=== PATIENT | male | born 1985 | race Caucasian/White ===

== ENCOUNTER 2020-03-26 00:41 | Outpatient (CLI) | payer BC, SELFPAY ==
[2020-03-26 18:07] LABS: SARS-CoV-2 RNA PCR Negative
== END 2020-03-26 00:42 | disposition home or self-care (01) ==
LOC: ANHCOVIDDT 00:42
PROVIDERS: PCP Family Medicine; Visit Provider Orthopaedic Surgery
DX: Z01.812 Encounter for preprocedural laboratory examination (principal); Z11.59 Encounter for screening for other viral diseases
CPT/HCPCS: 87635; C9803; U0003

== ENCOUNTER 2020-03-28 01:25 | Day surgery (SDC) | payer BC, SELFPAY ==
[2020-03-17 14:26] VITALS: BMI 51.0
[2020-03-28] VITALS (9 sets, daily range): BP systolic 117–149; BP diastolic 57–86; PULSE 73–96; RESP 10–18; TEMP 36.2–36.4; O2SAT 73–100
[2020-03-28] MEDS: LACTATED RINGERS 1,000 ML 30 ML IV CONT (06:30)
--- NOTE | 2020-03-28 06:56 | WPDANESEPPF ---
Anes - Initial Pre Proc Eval Procedure: Operation Date: 03/28/20 07:30 Proposed Procedures p Right Knee Arthroscopic Removal of Loose Bodies - Kg Bishop MD Date/Time: 03/28/20 06:56 Surgeon: Kg Bishop MD Pre Op Diagnosis: Right Knee Loose Bodies Patient Data Age: 34 Gender: M Height: 5 ft 10.5 in Weight: 163.5 kg Allergies Allergy/AdvReac Type Severity Reaction Status Date / Time No Known Allergies Allergy Verified 03/26/20 08:12 Home Medications Medication Instructions Recorded Confirmed Type gabapentin 300 mg capsule 300 mg PO TID 10/29/19 03/17/20 History omeprazole 20 mg capsule,delayed 20 mg PO DAILY #90 cap 02/20/20 03/17/20 Rx release tramadol 50 mg tablet 50 mg PO Q6H PRN #180 tablet 03/20/20 Rx Patient hx anesthesia problems: none Family hx anesthesia problems: none PMFSH Past Medical History Medical History Chondromalacia patellae of right knee GERD (gastroesophageal reflux disease) Loose body in knee, right knee Neuropathic pain, leg, bilateral Numbness and tingling of both feet Precious-Stieda syndrome of right knee Surgical History Surgical History History of gastric bypass (~2007) History of hand surgery (~2000) History of knee surgery (~2001) Family History Family History Other Family history of arthritis Social History Social History Smoking status: Never smoker Alcohol intake: never Substance use: never Substance use type: does not use Living arrangements: with family Gender identity (if verbalized by the patient): Male Spiritual care concerns: No Anes - Eval Final PreProcedure Day of Procedure 03/28/20 06:56 Patient weight: morbidly obese Heart: regular rate and rhythm Lungs: clear to auscultation Airway: Mallampati scale class II Neurological: alert and oriented Last oral intake: >/= 8 hours ASA classification: III Emergent: no Anesthetic plan: proceed Anesthesia type and monitoring: general LMA and standard monitoring Informed Consent: The patient's anesthetic plan and its attendant risks and benefits were discussed with the patient/family/POA. Questions were solicited and answers provided to the satisfaction of the patient/family/POA.
--- NOTE | 2020-03-28 07:06 | WPDHPUPDATE1 ---
History and Physical Update Update Date/Time: 03/28/20 07:06 History and Physical has been reviewed, including an updated exam of the patient. There are NO changes in the patient's condition. Risks, benefits, and alternatives have been discussed and questions answered. Patient agrees to proceed with procedure.
[2020-03-28] MEDS: ceFAZolin 3 GM/D5W 100 ML 100 ML IVPB (07:18)
[2020-03-28] MEDS: BUPIVACAINE/EPINEPHRINE 0.5% 30 ML VIAL INFILTRATE (07:42)
[2020-03-28] MEDS: KETOROLAC 30 MG/ML VIAL (*BKC) IV PUSH (07:57)
--- NOTE | 2020-03-28 08:43 | P.OP_ITS ---
Procedure Note - Detailed Date of procedure: 03/28/20 Pre-op diagnosis: Right Knee Loose Bodies Post-op diagnosis: other (1. Osteochondral defect right lateral femoral chondyle 2. Multiple small loose bodies. 3. Patellofemoral chondromalacia.) Procedure performed: Arthroscopic microfracture of anterior lateral chondyle osteochondral defect. Arthroscopic removal of multiple loose bodies. Description of procedure: 6mm defect at the lateral trochlea/femoral chondyle area. Patellofemoral chondromalacia. No meniscus injury. Weight bearing compartments intact. Anesthesia: GETA Surgeon: Kg Bishop MD Estimated blood loss (mL): 5 Complications: None Condition: stable Disposition: PACU Findings: Procedure Details: The patient was identified and the surgical site confirmed and signed in the preoperative holding area. Antibiotics were started per protocol. She was brought to the operative room and transferred to the OR table. A general anesthetic was administered. Supine position with the operative lower extremity position in the leg friedman after placement of a well padded tourniquet. The leg support was lowered and the contralateral limb was supported with a soft bolster. The knee was prepped and draped in the usual sterile fashion. A time-out was performed. The portal sites were marked and infiltrated with 0.5% Marcaine 20 mL. The limb was exsanguinated and the tourniquet inflated to 300 mL Hg. Standard inferolateral and inferomedial portals were established. Inflow was obtained with the saline pump. The camera was introduced. Diagnostic inspection of the joint was accomplished. Multiple small loose bodies were suctioned out through the shaver. Perhaps 2-3 or 4 were observed. The weight- bearing medial and lateral compartments were quite healthy. The menisci showed no pathology. Fat pad was excised for visualization and there was a stripe of tissue at the inferior pole the patella may have been impinging on the defect noted in the lateral most aspect of the trochlea along the lateral femoral condyle. This was debrided and a small osteochondral defect was identified. A microfracture awl perforation was placed into the subchondral bone. The defect was just about 5 mm in diameter. Significant portions of the trochlea and patella showed grade 2/Iii chondromalacia. There were early osteophytes forming in the notch and along the lateral condyles. The suprapatellar pouch showed m ild to moderate synovitis but no other loose bodies observed at the conclusion of the procedure. The arthroscopic instruments were removed. The tourniquet released and wounds closed with subcutaneous 3-0 Monocryl absorbable suture. Steri strips and a sterile dressing were applied. A light elastic wrap was placed. The patient was extubated and brought to the recovery room in stable condition.
== END 2020-03-28 10:30 | disposition home or self-care (01) ==
PROVIDERS: PCP Family Medicine; Visit Provider Orthopaedic Surgery
PROC: (CPT 29870; principal; 2020-03-28 07:30)
DX: M23.41 Loose body in knee, right knee (principal); M22.41 Chondromalacia patellae, right knee; M76.41 Tibial collateral bursitis [Pellegrini-Stieda], right leg; G62.9 Polyneuropathy, unspecified; K21.9 Gastro-esophageal reflux disease without esophagitis; Z98.84 Bariatric surgery status; E66.01 Morbid (severe) obesity due to excess calories; Z68.43 Body mass index [BMI] 50.0-59.9, adult
CPT/HCPCS: 29879; 87635; A9270; C9803; J0131; J0690; J1100; J1170; J1885; J2250; J2405; J2704; J3010; J7120; U0003

== ENCOUNTER 2020-07-08 12:56 | Outpatient (CLI) | payer BC, SELFPAY ==
--- NOTE | 2020-07-23 14:31 | WPDHOMESLEEP ---
Sleep Study - Home Unattended Date of Study: 07/08/20 Ordering Provider: Davin Cotto MD Interpreting Physician: Amina Pierce MD Home Sleep Study Type: Watch PAT Height: 1.78 m Weight: 163.293 kg Body Mass Index: 51.6 [place]: 15 Reason for Sleep Study loud snoring, fatigue Sleep History Steve Azevedo is a 34 year old man who is complaining of feeling tired all the time. His complains of his loud snoring. This is been going on for years. There is a family history with his mother wearing CPAP. Has a difficult time falling asleep, he wakes up during the night and he has excessive daytime sleepiness. His snoring is constantly loud enough that others complain about it. He did not have trouble sleeping with a cold. He rarely gasp for breath at night, does not have breathing problems at night observed by others other than his loud snoring. He occasionally sweats excessively at night, really notices his heart pounding irregularly at night, occasionally fall asleep during the day, occasionally involuntarily and occasionally while driving. He does not fall asleep during physical effort. He rarely has loss of muscle tone was strong emotion. He occasionally has daytime difficulties due to excessive sleepiness, works in an office setting. He does not feel paralyzed on waking or falling asleep. He occasionally has vivid dreamlike scenes upon awakening or falling asleep. He has never for a to go to sleep, does not have nightmares. He frequently remembers his dreams. He rarely has racing thoughts. He does not feel sad, depressed or anxious. He denies muscular tension. He frequently notices parts of his body jerking, frequently notices that he kicks at night, frequently has achy or crawly feelings in his legs and has leg pain during the night. He never has morning jaw pain. He does not grind his teeth during sleep. He rarely is bothered by pain during the day, rarely is awakened by pain at night. He occasionally wakes up feeling stiff in the morning with sore achy muscles and pain in his neck and spine. Bedtime is between 11:00 p.m. and 1:00 a.m. taking 15-20 minutes to fall asleep, typically waking 2-4 times at night for 5 minutes. While awake he will use the bathroom. His wake up time is 6:30 a.m.. On weekends he goes to bed later, midnight or his latest 2:00 a.m. and he will sleep until 830 or 9:30 a.m.. He does take naps. A short nap may be refreshing. He is drowsy in the morning for 2 hours or longer. He feels better in the evening compared to the morning. Habits: Never smoked tobacco. Three caffeinated beverages a day. No alcohol or recreational drugs. [facility] Past Medical History Medical History Chondromalacia patellae of right knee GERD (gastroesophageal reflux disease) Loose body in knee, right knee Neuropathic pain, leg, bilateral Numbness and tingling of both feet Precious-Stieda syndrome of right knee Surgical History Surgical History History of gastric bypass (~2007) History of hand surgery (~2000) History of knee surgery (~2001) History of knee surgery (~03/28/20) Arthroscopic Micro Fx w/Removal Loose Bodies Family History Family History (Updated 07/23/20 @ 14:36 by Amina Pierce MD) Mother Obstructive sleep apnea Other Family history of arthritis Social History Social History Smoking status: Never smoker Alcohol intake: never Substance use: never Substance use type: does not use Gender identity (if verbalized by the patient): Male Spiritual care concerns: No Medications Home Medications Medication Instructions Recorded Confirmed Type gabapentin 300 mg capsule 300 mg PO TID 10/29/19 07/04/20 History omeprazole 20 mg capsule,delayed 20 mg PO DAILY #90 cap 02/20/20 07/04/20 Rx release tramadol 50 mg ta
[2020-07-23 14:49] VITALS: BMI 51.6
== END 2020-07-08 12:57 | disposition home or self-care (01) ==
PROVIDERS: PCP Family Medicine; Visit Provider Family Medicine
DX: G47.33 Obstructive sleep apnea (adult) (pediatric) (principal)
CPT/HCPCS: 95800

== ENCOUNTER 2021-01-07 12:40 | Outpatient (CLI) | payer BC, SELFPAY ==
[2021-01-07 13:28] LABS: Hematocrit 40.1 % (42.0-52.0); Hemoglobin 12.3 g/dL (14.0-18.0); Mean Corpuscular HGB Conc 30.7 g/dl (32-36); Mean Corpuscular Hemoglobin 23.8 pg (26-34); Mean Corpuscular Volume 77.7 fl (80-100); Mean Platelet Volume 10.3 fl (7.4-10.4); Platelet Count Result 228 k/mm3 (150-375); Red Blood Count 5.16 M/mm3 (4.6-6.20); Red Cell Distribution Width 15.5 % (11.5-14.5); White Blood Count 4.2 K/mm3 (4.5-10.0)
[2021-01-07 15:13] LABS: Vitamin D 25 Hydroxy 13.5 ng/mL
[2021-01-07 16:02] LABS: Iron 32 ug/dL (49-181)
[2021-01-07 16:08] LABS: Percent Iron Saturation 7 % (20-50)
== END 2021-01-07 12:41 | disposition home or self-care (01) ==
LOC: ANHLAB 12:45
PROVIDERS: PCP Family Medicine; Visit Provider Nurse Practitioner Family
DX: R53.83 Other fatigue (principal); D64.9 Anemia, unspecified
CPT/HCPCS: 36415; 82306; 82607; 83540; 83550; 85027

== ENCOUNTER 2021-03-11 08:19 | Outpatient (CLI) | payer BC, SELFPAY ==
[2021-03-11 09:07] LABS: Hematocrit 41.5 % (42.0-52.0); Hemoglobin 13.3 g/dL (14.0-18.0); Mean Corpuscular Hemoglobin 25.7 pg (26-34); Mean Corpuscular Volume 80.1 fl (80-100); Mean Platelet Volume 10.6 fl (7.4-10.4); Platelet Count Result 186 k/mm3 (150-375); Red Blood Count 5.18 M/mm3 (4.6-6.20); Red Cell Distribution Width 16.3 % (11.5-14.5); White Blood Count 4.4 K/mm3 (4.5-10.0)
[2021-03-11 10:01] LABS: Vitamin D 25 Hydroxy 48.6 ng/mL
[2021-03-11 10:11] LABS: Folic Acid 7.4 ng/mL (2.76->20)
[2021-03-11 12:05] LABS: Iron 51 ug/dL (49-181); Percent Iron Saturation 13 % (20-50)
== END 2021-03-11 08:20 | disposition home or self-care (01) ==
PROVIDERS: PCP Family Medicine; Visit Provider Nurse Practitioner Family
DX: D64.9 Anemia, unspecified (principal); Z98.84 Bariatric surgery status; E61.1 Iron deficiency; E53.8 Deficiency of other specified B group vitamins; E55.9 Vitamin D deficiency, unspecified
CPT/HCPCS: 36415; 82306; 82607; 82746; 83540; 83550; 85027

== ENCOUNTER 2023-04-08 12:00 | Outpatient (CLI) | payer BC, SELFPAY ==
--- NOTE | ~2023-04-08 | XR_ITS ---
XR lumbar spine 2-3V DATE: 04/08/2023 12:24 INDICATION: Lower back pain with radiculopathy for 2 months TECHNIQUE: AP, lateral, coned lateral lumbosacral views COMPARISON: None FINDINGS: Mild loss of interspace height at L4-5 and L5-S1. Normal alignment lumbar spine. No fracture or bone destruction. Included lower thoracic and lumbar pe dicles are intact. No spondylolisthesis. The sacroiliac joints are normal. Surgical clips are noted in the superomedial left abdomen. IMPRESSION: Mild degenerative change Reviewed, dictated and finalized at location [facility]. IMPRESSION: Mild degenerative change
== END 2023-04-08 12:01 | disposition home or self-care (01) ==
PROVIDERS: PCP Family Medicine; Visit Provider Physician Assistant Medical
DX: M54.10 Radiculopathy, site unspecified (principal); M51.36 Other intervertebral disc degeneration, lumbar region
CPT/HCPCS: 72100

== ENCOUNTER 2023-06-30 07:53 | Outpatient (CLI) | payer BC, SELFPAY ==
--- NOTE | ~2023-06-30 | MR_ITS ---
MRI of the lumbar spine Clinical History: Pain Technique: Axial T2-weighted images, and sagittal T1-weighted, T2-weighted, and T2 fat-sat images wer e acquired. Findings: There is no fracture or subluxation of the lumbar spine. Vertebral bodies maintain normal h eight and alignment. There is mild diffuse T1 hypointensity, suggestive of red marrow conversion/unde rlying anemia. No focal bone marrow signal abnormality seen. At L1-L2, there is no disc bulge or herniation. There is moderate facet arthropathy. No central canal stenosis or neural foraminal narrowing evident. At L2-L3, there is minimal disc bulge and mild to moderate facet arthropathy. There is minimal centra l canal stenosis. There is mild bilateral neural foraminal narrowing. L3-L4, there is disc bulge with probable small superimposed disc herniation extending superiorly. The re is moderate to severe facet arthropathy. These factors all contribute to severe spinal canal steno sis/thecal sac compression at this level. There is moderate bilateral neural foraminal narrowing. At L4-L5, disc bulge and severe facet arthropathy results in mild to moderate central canal stenosis. There is severe bilateral neural foraminal narrowing. At L5-S1, there is extensive disc bulge/protrusion with moderate facet arthropathy. There is mild to moderate central canal stenosis/thecal sac compression. There is severe bilateral neural foraminal na rrowing. Paravertebral soft tissues are unremarkable. Impression: Severe degenerative spondylosis, worst at L3-L4 where there is a probable small disc herniation. Plea se see details above. Mild diffuse T1 hypointensity suggests red marrow conversion/underlying anemia. Reviewed, dictated and finalized at [facility]. Impression: Severe degenerative spondylosis, worst at L3-L4 where there is a probable small disc herniation. Please see details above. Mild diffuse T1 hypointensity suggests red marrow conversion/underlying anemia.
== END 2023-06-30 07:54 | disposition home or self-care (01) ==
PROVIDERS: PCP Family Medicine; Visit Provider Nurse Practitioner Family
DX: M43.04 Spondylolysis, thoracic region (principal); R93.7 Abnormal findings on diagnostic imaging of other parts of musculoskeletal system
CPT/HCPCS: 72148

== ENCOUNTER 2023-09-24 09:12 | Outpatient (CLI) | payer BC, SELFPAY ==
--- NOTE | ~2023-09-24 | XR_ITS ---
Clinical Indication: Cough PA and lateral views of the chest: Comparison: 08/21/2006 Findings: The lungs are clear, without evidence of focal consolidation or pleural effusion. Cardiome diastinal silhouette is within normal limits. Bones and soft tissues are unremarkable. Impression: Normal chest. Reviewed, dictated and finalized at [facility]. [employer]GER Impression: Normal chest.
== END 2023-09-24 09:13 ==
LOC: MICIMG 09:13
PROVIDERS: PCP Nurse Practitioner Family; Visit Provider Nurse Practitioner Family
DX: R05.3 Chronic cough (principal)
CPT/HCPCS: 71046

== ENCOUNTER 2024-07-04 08:49 | Outpatient (CLI) | payer BC, SELFPAY ==
--- NOTE | ~2024-07-04 | MR_ITS ---
EXAMINATION: MR thoracic spine wo con, MR lumbar spine wo con DATE: 07/04/2024 09:44 INDICATION: Lumbar radicular pain TECHNIQUE: 1. Magnetic resonance imaging (MRI) of the thoracic spine was performed without intravenous contrast. Sagittal localizer T1-weighted FSE of the cervicothoracic spine was obtained. Thoracic spine sequenc es included sagittal T2-weighted FSE, sagittal T1-weighted SE, Sagittal T2-weighted FS FSE, and axial T2-weighted FSE. 2. MRI of the lumbar spine was performed without intravenous contrast. Sequences included sagittal T2 -weighted FSE, sagittal T2-weighted FS FSE, sagittal T1-weighted FSE, and axial T2-weighted FSE. COMPARISON: None FINDINGS: THORACIC SPINE MRI: 10 degrees thoracic dextrocurvature. Sagittal alignment is normal. Chronic mild likely physiologic an terior wedging at T11. Remaining thoracic vertebral body heights are normal. There are Schmorl's node s at multiple levels in the mid to lower thoracic spine. There is moderate disc height loss at T5-T6, T6-T7 and T7-T8. Mild disc height loss at the remaining levels from T1-T2 through T10-T11. There are disc protrusions contributing to mild central canal stenosis at T1-T2, T2-T3 and T4-T5 through T8-T9 . There is multilevel mild bilateral facet osteoarthritis throughout the thoracic spine which appears to mild neural foraminal stenosis at a few levels on both the left and right. There is normal spinal cord signal throughout. Paravertebral soft tissues are unremarkable. LUMBAR SPINE MRI: Alignment is normal. Vertebral body heights are normal. Normal bone marrow signal throughout. Mild di sc height loss at L3-L4, mild to moderate disc height loss at L4-L5 and L5-S1. There are annular fiss ures at each of these levels. The conus terminates at L1. There is normal cord signal at the conus. P aravertebral soft tissues are unremarkable. The following disc levels are specifically discussed: T12-L1: The disc does not extend beyond the endplate margin. There is mild left and moderate right fa cet joint osteoarthritis. There is no neural foraminal stenosis. There is no central canal stenosis. L1-L2: The disc does not extend beyond the endplate margin. There is mild bilateral facet joint osteo arthritis. There is mild bilateral neural foraminal stenosis. There is no central canal stenosis. L2-L3: Small bilateral foraminal zone disc protrusions. There is mild to moderate bilateral facet denisse nt osteoarthritis. There is mild to moderate bilateral neural foraminal stenosis. There is mild centr al canal stenosis. L3-L4: Central disc protrusion. There is mild left and moderate right facet joint osteoarthritis. The re is moderate bilateral neural foraminal stenosis. There is moderate to severe central canal stenosi s. L4-L5: Disc is bulging. There is moderate bilateral facet joint osteoarthritis. There is moderate john ateral neural foraminal stenosis. There is moderate central canal stenosis. L5-S1: Large central disc protrusion. There is moderate bilateral facet joint osteoarthritis. There i s moderate bilateral neural foraminal stenosis. There is moderate central canal stenosis. IMPRESSION: 1. Moderate thoracic and lumbar spondylosis most notable for moderate to severe central canal stenosi s and moderate neural foraminal stenosis. Mid to lower lumbar spine. Reviewed, dictated and finalized at location A. IMPRESSION: 1. Moderate thoracic and lumbar spondylosis most notable for moderate to severe central canal stenosis and moderate neural foraminal stenosis. Mid to lower kobe mbar spine.
== END 2024-07-04 08:50 | disposition home or self-care (01) ==
LOC: MICIMG 08:50
PROVIDERS: PCP Family Medicine; Visit Provider Pain Medicine Pain Medicine
DX: M48.062 Spinal stenosis, lumbar region with neurogenic claudication (principal); M47.894 Other spondylosis, thoracic region; M47.26 Other spondylosis with radiculopathy, lumbar region
CPT/HCPCS: 72146; 72148